=== PATIENT | male | born 1980 | race Caucasian/White ===

== ENCOUNTER 2022-05-09 16:00 | Inpatient (IN) | payer BC ==
[~2022-05-09] VITALS: Ht 177.8 cm; Wt 77.1 kg
[2022-05-09 16:20] LABS: HEMATOCRIT 38.3 % (36.7-47.1); MEAN CORPUSCULAR HEMOGLOBIN 29.3 uug (23.8-33.4); PLATELET COUNT (AUTO) 224 K/uL (152-348)
[2022-05-09] MEDS ORDERED: IV NORMAL SALINE 1000 ML BAG IV ONE (16:30)
[2022-05-09] MEDS ORDERED: ONDANSETRON 4 MG/2 ML VIAL IV ONE ×2 (16:30→21:45)
[2022-05-09] MEDS ORDERED: MORPHINE SULFATE 4 MG/1 ML DISP.SYRIN IV ONE (16:30)
[2022-05-09 16:59] LABS: BILIRUBIN,DIRECT 0.2 mg/dL (0.0-0.2); BILIRUBIN,TOTAL 0.8 mg/dL (0.2-1.0); POTASSIUM 3.8 mmol/L (3.5-5.1); TOTAL PROTEIN, SERUM 7.9 g/dL (6.4-8.2)
[2022-05-09] MEDS ORDERED: MORPHINE SULFATE 4 MG/1 ML DISP.SYRIN ONE (17:12)
[2022-05-09] MEDS ORDERED: ONDANSETRON 4 MG/2 ML VIAL ONE ×2 (17:13→21:37)
[2022-05-09] MEDS ORDERED: PIPERACILLIN SODIUM/TAZOBACTAM 3.375 G in IV DEXTROSE 5% 50 ML IV ONE (17:45)
[2022-05-09] MEDS ORDERED: PIPERACILLIN/TAZOBACTAM/D5W 50 ML IV ONE (17:55)
[2022-05-09 20:01] LABS: *BILIRUBIN,URIN NEGATIVE (NEGATIVE); *BLOOD, URINE 1+ (NEGATIVE); *CLARITY,URINE CLEAR (CLEAR); *COLOR,URINE YELLOW (YELLOW); *KETONES,URINE 2+ (NEGATIVE); *UROBILINOGEN,URINE 0.2 E.U./dl (NORMAL); LEUKOCYTE ESTERASE ,URINE TRACE (NEGATIVE); NITRITE, URINE NEGATIVE (NEGATIVE); RBC,URINE 0-3 /HPF (0-3); UGLUCOSE NEGATIVE (NEGATIVE)
[2022-05-09 20:02] LABS: WBC,URINE 0-3 /HPF (0-3)
[2022-05-09] MEDS ORDERED: HYDROMORPHONE 2 MG/1 ML DISP.SYRIN ONE (21:37)
[2022-05-09] MEDS ORDERED: HYDROMORPHONE 1 MG/1 ML DISP.SYRIN IV ONE (21:45)
[2022-05-09] MEDS ORDERED: NITROGLYCERIN OINT 1 GM PACKET TP ONE ×2 (22:00→22:10)
[2022-05-09 23:48] VITALS: BP 105/51
[2022-05-10] MEDS ORDERED: ONDANSETRON 4 MG/2 ML VIAL IV PRN
[2022-05-10] MEDS ORDERED: MORPHINE SULFATE 4 MG/1 ML DISP.SYRIN IV PRN (00:15)
[2022-05-10] MEDS: ENOXAPARIN SODIUM 40 MG/0.4 ML DISP.SYRIN SQ SCH ×2 (00:18→20:17)
[2022-05-10] MEDS: IV D5 1/2 NS 1000 ML 1,000 ML IV PRN ×2 (00:19→14:03)
[2022-05-10] MEDS ORDERED: PIPERACILLIN/TAZOBACTAM/D5W 50 ML IV ONE (00:26)
[2022-05-10] MEDS: PIPERACILLIN SODIUM/TAZOBACTAM 3.375 G in IV DEXTROSE 5% 50 ML IV SCH ×2 (00:39→06:25)
[2022-05-10] MEDS ORDERED: KETOROLAC TROMETHAMINE 30 MG INJ IVP ONE (01:15)
[2022-05-10 04:30] VITALS: BP 101/56
[2022-05-10 09:17] LABS: HEMATOCRIT 33.7 % (36.7-47.1); MEAN CORPUSCULAR VOLUME 88.3 fL (73.0-96.2); PLATELET COUNT (AUTO) 188 K/uL (152-348)
[2022-05-10 09:31] LABS: MAGNESIUM 1.9 mg/dL (1.8-2.4); PHOSPHOROUS 2.8 mg/dL (2.5-4.9); POTASSIUM 3.6 mmol/L (3.5-5.1)
[2022-05-10] MEDS: DOCUSATE SODIUM 250 MG CAPSULE PO SCH ×2 (10:08→10:16)
[2022-05-10 11:50] VITALS: BP 102/55
[2022-05-10] MEDS ORDERED: PIPERACILLIN SODIUM/TAZOBACTAM 3.375 G in IV DEXTROSE 5% 50 ML IV SCH (12:00)
[2022-05-10] MEDS ORDERED: NITR1OIN2 TP (13:31)
[2022-05-10] MEDS: PIPERACILLIN SODIUM/TAZOBACTAM 3.375 G in IV DEXTROSE 5% 100 ML IV SCH ×2 (13:45→21:46)
[2022-05-10] MEDS ORDERED: ACETAMINOPHEN 325 MG TABLET PO PRN (15:30)
[2022-05-10 16:02] VITALS: BP 122/66
[2022-05-10] MEDS: KETOROLAC TROMETHAMINE 30 MG INJ IM PRN (17:25)
[2022-05-10 20:00] VITALS: BP 101/57
[2022-05-11] VITALS: BP 110/58
[2022-05-11 04:00] VITALS: BP 123/55
[2022-05-11] MEDS: PIPERACILLIN SODIUM/TAZOBACTAM 3.375 G in IV DEXTROSE 5% 100 ML IV SCH ×3 (05:29→21:40)
[2022-05-11] MEDS: IV D5 1/2 NS 1000 ML 1,000 ML IV PRN (06:51)
[2022-05-11] MEDS: DOCUSATE SODIUM 250 MG CAPSULE PO SCH (08:51)
[2022-05-11] MEDS: KETOROLAC TROMETHAMINE 30 MG INJ IM PRN ×2 (08:52→16:38)
[2022-05-11 11:53] VITALS: BP 120/66
[2022-05-11 15:52] VITALS: BP 117/63
[2022-05-11] MEDS: PANTOPRAZOLE SODIUM 40 MG VIAL IV SCH (15:59)
[2022-05-11 20:00] VITALS: BP 106/62
[2022-05-11] MEDS: ENOXAPARIN SODIUM 40 MG/0.4 ML DISP.SYRIN SQ SCH ×2 (20:40→20:44)
[2022-05-12 04:00] VITALS: BP 134/61
[2022-05-12] MEDS: IV D5 1/2 NS 1000 ML 1,000 ML IV PRN (05:02)
[2022-05-12] MEDS: PIPERACILLIN SODIUM/TAZOBACTAM 3.375 G in IV DEXTROSE 5% 100 ML IV SCH (05:52)
[2022-05-12 06:25] LABS: MEAN CORPUSCULAR HEMOGLOBIN 29.7 uug (23.8-33.4); PLATELET COUNT (AUTO) 196 K/uL (152-348)
[2022-05-12 06:30] LABS: CREATININE 1.1 mg/dL (0.6-1.3); MAGNESIUM 1.9 mg/dL (1.8-2.4); PHOSPHOROUS 3.9 mg/dL (2.5-4.9); POTASSIUM 3.6 mmol/L (3.5-5.1)
[2022-05-12] MEDS: PANTOPRAZOLE SODIUM 40 MG VIAL IV SCH (08:06)
[2022-05-12] MEDS: DOCUSATE SODIUM 250 MG CAPSULE PO SCH (08:07)
[2022-05-12] MEDS ORDERED: PANT40TA2 PO (11:20)
[2022-05-12] MEDS ORDERED: METR500T PO (11:20)
[2022-05-12] MEDS ORDERED: CIPR-262 PO (11:20)
[2022-05-12 11:35] VITALS: BP 108/67
== END 2022-05-12 12:50 | disposition home or self-care (01) | DRG 392 ==
LOC: ER 16:00 → MEDSURG3 22:50
PROVIDERS: ADMIT Nurse Practitioner Acute Care; ATTEND Nurse Practitioner Acute Care
DX: K57.20 Diverticulitis of large intestine with perforation and abscess without bleeding (principal); K60.2 Anal fissure, unspecified; R94.31 Abnormal electrocardiogram [ECG] [EKG]; F17.290 Nicotine dependence, other tobacco product, uncomplicated; R19.7 Diarrhea, unspecified; Z87.19 Personal history of other diseases of the digestive system
CPT/HCPCS: 36415; 83690; 83735; 84100; 85025; 85730; 86850; 86900; 86901; 87040; 93005; A4663; C9113; G0378; J1170; J1650; J1885; J2270; J2405; J2543; J7040